=== PATIENT | male | born 1945 | race Caucasian/White ===

== ENCOUNTER 2019-05-10 17:26 | Emergency (ER) | payer MEDICARE, BC ==
[~2019-05-10] VITALS: Ht 180.3 cm; Wt 74.0 kg
[2019-05-10 18:13] LABS: INFLUENZA A PATIENT NEGATIVE (NEGATIVE); INFLUENZA B PATIENT NEGATIVE (NEGATIVE)
[2019-05-10 18:51] LABS: BASO # 0.1 x10^3/uL (0.0-0.2); BASO % 1 % (0-3); EOS # 0.1 x10^3/uL (0.0-0.7); EOS % 1 % (0-3); HEMATOCRIT 44.7 % (39.0-53.0); HEMOGLOBIN 14.7 g/dL (13.0-17.5); LYMPH # 1.1 x10^3/uL (1.0-4.8); LYMPH % 8 % (24-48); MEAN CORPUSCULAR HEMOGLOBIN 29 pg (25-35); MEAN CORPUSCULAR HGB CONC 33 g/dL (31-37); MEAN CORPUSCULAR VOLUME 88 fL (79-100); MONO # 1.4 x10^3/uL (0.0-1.1); MONO % 10 % (0-9); NEUT # 11.9 x10^3uL (1.8-7.7); NEUT % 81 % (31-73); PLATELET COUNT 591 x10^3/uL (140-400); RED CELL DISTRIBUTION WIDTH 15.1 % (11.5-14.5); WHITE BLOOD COUNT 14.6 x10^3/uL (4.0-11.0)
--- NOTE | 2019-05-10 18:54 | PHYS DOC ---
Past History Past Medical History: Cancer, COPD, Diabetes Past Surgical History: Other Additional Past Surgical Histo: bladder cancer Alcohol Use: None Adult General Chief Complaint Chief Complaint: FEVER HPI HPI Patient is a 73-year-old male who presented to ER today for evaluation of productive cough with yellow sputum, fever, chill, sinus congestion for 6 days. Patient denies any chest pain, no trouble breathing, no abdominal pain, no nausea vomiting. Patient denies any recent travel outside the country. No sick contact exposure. he has history COPD. He is not on oxygen at home. Review of Systems Review of Systems All other ROS is negative unless otherwise noted in HPI Positive for cough, fever, chill, sinus congestion, NEGATIVE FOR CHEST PAIN, NO SHORTNESS OF AIR, NO ABDOMINAL PAIN, NO HEADACHE. Allergies Allergies Allergies Coded Allergies Type Severity Reaction Last Updated Verified Penicillins Allergy Unknown Hives 05/10/19 Yes Physical Exam Physical Exam See above Constitutional: Well developed, well nourished, no acute distress, non-toxic appearance. [] HENT: Normocephalic, atraumatic, bilateral external ears normal, oropharynx moist and erythema, no oral exudates, bilateral nare with inflammation and clear drainage. Eyes: PERRLA, EOMI, conjunctiva normal, no discharge. [] Neck: Normal range of motion, no tenderness, supple, no stridor. [] Cardiovascular:Heart rate regular rhythm, no murmur [] Lungs & Thorax: Bilateral breath sounds clear to auscultation [] Abdomen: Bowel sounds normal, soft, no tenderness, no masses, no pulsatile masses. [] Skin: Warm, dry, no erythema, no rash. [] Back: No tenderness, no CVA tenderness. [] Extremities: No tenderness, no cyanosis, no clubbing, ROM intact, no edema. [] Neurologic: Alert and oriented X 3, normal motor function, normal sensory function, no focal deficits noted. [] Psychologic: Affect normal, judgement normal, mood normal. [] Current Patient Data Vital Signs Vital Signs Date Time Temp Pulse Resp B/P (MAP) Pulse Ox O2 Delivery O2 Flow Rate FiO2 05/10/19 17:50 99.8 89 18 144/71 (95) 92 Room Air Lab Results Laboratory Tests Test 05/10/19 17:36 Influenza Type A (Rapid) Negative (NEGATIVE) Influenza Type B (Rapid) Negative (NEGATIVE) EKG EKG [] Radiology/Procedures Radiology/Procedures [][address] [address] IMAGING REPORT Signed PATIENT: FRANCOIS CALDERON ACCOUNT: [id number] : 1945 LOCATION: ER AGE: 73 SEX: M EXAM STATUS: REG ER ORD. PHYSICIAN: MARYANNE LOGAN DO REASON: Cough, congestion, fever PROCEDURE: CHEST PA & LATERAL Exam: Chest 2 views INDICATION: Cough TECHNIQUE: Frontal and lateral views of the chest Comparisons: None FINDINGS: The cardiomediastinal silhouette and pulmonary vessels are within normal limits. Patchy airspace disease in the right lower lobe. No pleural effusion. IMPRESSION: Left lower lobe pneumonia. Electronically signed by: Freda Patterson MD (05/10/2019 7:06 PM) [id number] DICTATED AND SIGNED BY: FREDA PATTERSON MD DATE: 05/10/191905 CC: MARYANNE LOGAN DO; JUSTO FLORES MD; MARCELO HOLDEN DO ~ Course & Med Decision Making Course & Med Decision Making Pertinent Labs and Imaging studies reviewed. (See chart for details) Patient was found to have pneumonia. He was given iv antibiotic. HE FELT BETTER. He would like to be treated outpatient. Dragon Disclaimer Dragon Disclaimer This electronic medical record was generated, in whole or in part, using a voice recognition dictation system. Departure Departure: Impression: Primary Impression: Pneumonia Disposition: 01 HOME, SELF-CARE Condition: STABLE Referrals: JUSTO FLORES MD (PCP) follow up with your doctor this week Patient Instructions: Pneumonia, Adult Additional Instructions: Thank you for visiting our Emergency Department. We appreciate you trusting us with your care. If any additional problems come up don't hesitate to return to visit us. Please follow up with your primary care provider so they can plan additional care if needed and know about the problem that you had. If symptoms worsen come back to the Emergency Department. Any concerning symptoms that start such as chest pain, shortness of air, weakness or numbness on one side of the body, running high fevers or any other concerning symptoms return to the ER. Scripts Levofloxacin (LEVAQUIN) 750 Mg Tablet 1 TAB PO DAILY for pneumonia for 7 Days, #7 TAB 0 Refills Prov: MARCELO HOLDEN DO 05/10/19 MARCELO HOLDEN DO May 10, 2019 18:54
[2019-05-10 19:03] LABS: CALCIUM 8.7 mg/dL (8.5-10.1); CREATININE 1.2 mg/dL (0.7-1.3); GFR 59.2; POTASSIUM 4.4 mmol/L (3.5-5.1)
--- NOTE | 2019-05-10 19:09 | RAD ---
Exam: Chest 2 views INDICATION: Cough TECHNIQUE: Frontal and lateral views of the chest Comparisons: None FINDINGS: The cardiomediastinal silhouette and pulmonary vessels are within normal limits. Patchy airspace disease in the right lower lobe. No pleural effusion. IMPRESSION: Left lower lobe pneumonia. Electronically signed by: Freda Hurt MD (05/10/2019 7:06 PM) [id number]
[2019-05-10 19:10] LABS: ALBUMIN 3.3 g/dL (3.4-5.0); ALBUMIN/GLOBULIN RATIO 0.9 (1.0-1.7); TOTAL BILIRUBIN 0.7 mg/dL (0.2-1.0)
[2019-05-10] MEDS ORDERED: IV NORMAL SALINE 1,000ML 1,000 ML IV ONE (19:15)
[2019-05-10 21:14] VITALS: BP 138/58
[2019-05-10] MEDS ORDERED: LEVO750T31 PO (21:33)
[2019-05-10 21:44] LABS: BACTERIA,URINE MOD /HPF (0-FEW); BILIRUBIN,URINE NEG (NEG); CLARITY,URINE CLOUDY; COLOR,URINE YELLOW; GLUCOSE,URINE NEG (NEG); NITRITE,URINE POS (NEG); UROBILINOGEN,URINE 0.2 mg/dL (0.2 mg/dL)
[2019-05-10 21:45] LABS: AMORPHOUS SEDIMENT,UR PRESENT /HPF
--- NOTE | 2019-05-10 22:50 | EKG ---
[address] [address] Test Date: 2019-05-10 Test Time: 19:15:56 Pat Name: FRANCOIS CALDERON Department: Room: Gender: M Banquet Server On Call: : 1945 Requested By: MARCELO HOLDEN Order Number: [id number] Reading MD: Measurements Intervals [place] Rate: 62 P: 68 NC: 140 QRS: 49 QRSD: 86 T: 80 QT: 402 QTc: 410 Interpretive Statements SINUS RHYTHM NORMAL ECG RI6.01 No previous ECG available for comparison
== END 2019-05-10 21:40 | disposition home or self-care (01) ==
LOC: ER 17:26
DX: J18.9 Pneumonia, unspecified organism (principal); J44.9 Chronic obstructive pulmonary disease, unspecified; E11.9 Type 2 diabetes mellitus without complications; Z88.0 Allergy status to penicillin
CPT/HCPCS: 36415; 71046; 80053; 81001; 83605; 84484; 85025; 85610; 85730; 87086; 87804; 93005; 96365; 96366; 99285; J1956; J7030

== ENCOUNTER 2019-06-02 07:32 | Emergency (ER) | payer MEDICARE, BC ==
[~2019-06-02] VITALS: Ht 180.3 cm; Wt 74.0 kg
[~2019-06-02 07:32] MED LIST: LEVO750T31 PO
--- NOTE | 2019-06-02 07:52 | PHYS DOC ---
Past History Past Medical History: Cancer (Bladder), COPD, Diabetes Past Surgical History: Other Additional Past Surgical Histo: cystectomy for bladder cancer with Urostomy and "pouch"- 2015 at Smoking: Quit Greater Than 1 Year Alcohol Use: None Drug Use: None Adult General Chief Complaint Chief Complaint: R hip pain HPI HPI 73-year-old male resents with report of right hip pain status post mechanical slip and fall while in the parking lot at [employer] just prior to arrival. Reports came down onto right side. Denies head injury, neck pain, or LOC. Reports unable to move right leg without pain. Denies prior injury or prior surgery to right hip. Denies nausea or vomiting. Reports use of Plavix. Reports last PO was a cup of coffee at 0700 this AM. Review of Systems Review of Systems Constitutional: Denies fever or chills Eyes: Denies redness or eye pain HENT: Denies nasal congestion or sore throat Respiratory: Denies cough or shortness of breath Cardiovascular: Denies chest pain or palpitations GI: Denies abdominal pain, nausea, or vomiting : Denies dysuria or hematuria Musculoskeletal: Reports low back pain and right hip pain Integument: Denies rash or skin lesions Neurologic: Denies headache, focal weakness or sensory changes Complete systems were reviewed and found to be within normal limits, except as documented in this note. Allergies Allergies Allergies Coded Allergies Type Severity Reaction Last Updated Verified Penicillins Allergy Unknown Hives 05/10/19 Yes Physical Exam Physical Exam Constitutional: Well developed, well nourished, uncomfortable, non-toxic appearance HENT: Normocephalic, atraumatic, oropharynx moist Eyes: PERRL, EOMI, conjunctiva normal, no discharge Neck: Normal range of motion, no midline tenderness, supple Cardiovascular: Heart rate normal, regular rhythm Lungs & Thorax: Bilateral breath sounds clear to auscultation, no wheezing Abdomen: Soft, no tenderness; pelvis stable and nontender, urostomy bag noted Back: No CVA tenderness, Mid lumbar paraspinal and midline tenderness noted Skin: Warm, dry, no erythema, no rash Extremities: Right hip tenderness on ROM, no obvious shortening and not held in internal/external rotation, no edema, right DP and PT +2 Neurologic: Alert and oriented X 3, normal motor function, normal sensory function, no focal deficits noted Psychologic: Affect normal, judgment normal EKG EKG @0749 NSR at 86bpm, NO ST elevation Radiology/Procedures Radiology/Procedures PROCEDURE: HIP RIGHT 2V WITH PELVIS Examination: HIP RIGHT 2V WITH PELVIS History: Pain, fall Comparison/Correlation: None Findings: Frontal view of pelvis was obtained. Frontal view of the right hip and frog leg lateral view right hip were provided. Portable technique utilized. Surgical clips are noted bilaterally with rib is pelvis and overlying the pubic bone level. The hip joints are symmetric with no significant degenerative narrowing. Right sacroiliac joint partial fusion noted. Partial fusion of the left sacroiliac joint also suggested. Arteriovascular calcifications evident. Deformity of the lateral right subcapital region raises question of fracture on the frontal view. Impression: Subtle right subcapital fracture is questioned. Further evaluation with CT or MRI exam is recommended for more definitive assessment. Electronically signed by: Eulalio Fowler MD (06/02/2019 8:30 AM) [id number] PROCEDURE: CHEST AP ONLY EXAM: CHEST 1 VIEW History: Pain status post fall COMPARISON: 05/10/2019 TECHNIQUE: Single portable radiograph of the chest FINDINGS: The cardiac silhouette is unremarkable. The lungs are clear bilaterally. The costophrenic sulci are clear and well demarcated. IMPRESSION: No radiographic evidence of an acute cardiopulmonary process. Electronically signed by: Rashid Velarde MD (06/02/2019 8:23 AM) [id number] PROCEDURE: CT PELVIS WO CONTRAST, CT LUMBAR SPINE WO CONTRAST History: Right hip pain. Questionable fracture. Spine pain. Comparison: Radiograph June 02, 2019 Technique: Noncontrast CT imaging was performed of the lumbar spine and pelvis. Coronal and sagittal reconstructions were performed. Exposure: One or more of the following individualized dose reduction techniques were utilized for this examination: 1. Automated exposure control 2. Adjustment of the mA and/or kV according to patient size 3. Use of iterative reconstruction technique. Findings: Pelvis: Acute nondisplaced right subcapital femoral neck fracture. No dislocation. No additional fracture. Postoperative changes cystectomy with right lower quadrant ileal conduit. Lumbar spine: Normal vertebral body height and alignment. No fracture. Multiple level lumbar degenerative disc changes most prominent L4-L5. Moderate lower lumbar facet arthropathy. No high-grade canal stenosis. No high-grade neural foraminal narrowing. Mild left L4-5 and L5-S1 neuroforaminal narrowing. Impression: 1. Acute nondisplaced right subcapital femoral neck fracture. 2. Multilevel lumbar spondylosis. Electronically signed by: Inocencio Sanders DO (06/02/2019 9:30 AM) [id number] PROCEDURE: CT HEAD AND CERVICAL SPINE [facility] Compliance Statement: One or more of the following individualized dose reduction techniques were utilized for this examination: 1. Automated exposure control 2. Adjustment of the mA and/or kV according to patient size 3. Use of iterative reconstruction technique CT HEAD AND CERVICAL SPINE WITHOUT CONTRAST History: Pain status post fall, history of Plavix use. Comparison: None. Procedure: Axial images are obtained of the head from the skull base through the vertex without IV contrast. Noncontrast helical CT of the cervical spine was performed. Axial, sagittal, and coronal reconstructions were obtained. Findings: The ventricles and sulci are normal for the patient's age. No mass-effect, midline shift, hemorrhage or obvious acute infarction is identified. Basilar cisterns are patent. Bone windows demonstrate no significant calvarial abnormality. Mucosal thickening of the bilateral maxillary and sphenoid sinuses. The paranasal sinuses are thick walled which may be due to chronic or recurrent sinus disease. Mastoid air cells are well aerated. There is no evidence of acute fracture or acute malalignment of the cervical spine. No perched or jumped facet joints. Facet joints are hypertrophic. The C2/C3 facets are fused bilaterally. There is diffuse demineralization of the upper thoracic spine. There is minimal grade 1 retrolisthesis of C3 on C4. The alignment is otherwise maintained. No significant disc space narrowing. No high-grade narrowing of the central canal is identified. Visualized soft tissues of the neck demonstrate no significant abnormalities. The visualized lung apices are clear. There is upper lung emphysema. IMPRESSION: 1. No acute intracranial abnormality. 2. No acute fracture of the cervical spine. Electronically signed by: Shawn Russell MD (06/02/2019 9:33 AM) [id number] Course & Med Decision Making Course & Med Decision Making Pertinent Labs and Imaging studies reviewed. (See chart for details) Patient presents status post mechanical slip and fall while in parking lot at grocery store. Patient reports unable to bear weight or move hip without significant pain. Denies head trauma or loss of conscious. Denies neck pain. No midline cervical spine tenderness appreciated. Patient is neurologically intact. Reports use of Plavix. Pain addressed. Ice applied. X-ray of right hip reveals subtle subcapital fracture. CT pelvis obtained for further clarification which confirmed nondisplaced subcapital fracture. CT lumbar spine also obtained without acute fracture. CT head/cervical spine without acute process. Perioperative labs, EKG, and chest x-ray obtained without significant findings. UA appears infected with nitrite positive and some WBCs on microscopy, however, no bacteria and appears more likely chronic contamination due to urostomy with probable ileal conduit. Will hold empiric antibiotics. Patient requiring transfer for orthopedic consultation and admission for further evaluation and treatment. Patient offered transfer to [facility]. Patient declined due to "personal preference" and instead requests transfer to [facility]. 0835: Utilized [facility] transfer center. Discussed case with Dr. Coles (ED). Both in agreement that despite mechanical fall, patient appears to have no significant other trauma and might be safer for patient to be direct admission. [facility] scan coordinator- Elle PARKS discussed with trauma surgeon. CT imaging still pending at this time. 0905: Elle discussed with trauma surgeon but requesting CT imaging results to be finalized prior to acceptance for direct admission. Requests to call back [facility] transfer line upon CT radiology reports finalized. 0940: Radiology reports finalized. Discussed again with [facility] transfer line. 1042: [facility] transfer line called back. Discussed case with Fauzia BILLINGS with Dr. Selena Yanez (orthopedics) who is accepting of transfer for admission to [facility]. Discussed findings and plan with patient and family, who acknowledge understanding and agreement. Dragon Disclaimer Dragon Disclaimer This electronic medical record was generated, in whole or in part, using a voice recognition dictation system. Departure Departure: Impression: Primary Impression: Fall Additional Impression: Closed subcapital fracture of right femur Disposition: 05 TRANSFER OTHER ([facility]- accepting) Condition: STABLE Referrals: JUSTO FLORES MD (PCP) Problem Qualifiers Primary Impression: Fall Encounter type: initial encounter Qualified Codes: W19.XXXA - Unspecified fall, initial encounter Additional Impression: Closed subcapital fracture of right femur Encounter type: initial encounter Qualified Codes: S72.011A - Unspecified intracapsular fracture of right femur, initial encounter for closed fracture MIKEL CUETO DO Jun 02, 2019 07:52
--- NOTE | 2019-06-02 07:56 | EKG ---
[address] [address] Test Date: 2019-06-02 Test Time: 07:49:04 Pat Name: FRANCOIS CALDERON Department: Room: Gender: M Elevator Repair Mechanic: : 1945 Requested By: MIKEL CUETO Order Number: [id number] Reading MD: Measurements Intervals [place] Rate: 86 P: 72 AL: 142 QRS: 67 QRSD: 84 T: 68 QT: 340 QTc: 410 Interpretive Statements SINUS RHYTHM NORMAL ECG RI6.01 No previous ECG available for comparison
[2019-06-02 08:13] LABS: BASO # 0.1 x10^3/uL (0.0-0.2); BASO % 1 % (0-3); EOS # 0.7 x10^3/uL (0.0-0.7); EOS % 7 % (0-3); HEMATOCRIT 51.3 % (39.0-53.0); HEMOGLOBIN 16.9 g/dL (13.0-17.5); LYMPH # 1.4 x10^3/uL (1.0-4.8); LYMPH % 14 % (24-48); MEAN CORPUSCULAR HEMOGLOBIN 30 pg (25-35); MEAN CORPUSCULAR HGB CONC 33 g/dL (31-37); MEAN CORPUSCULAR VOLUME 90 fL (79-100); MONO # 0.6 x10^3/uL (0.0-1.1); MONO % 6 % (0-9); NEUT % 72 % (31-73); PLATELET COUNT 617 x10^3/uL (140-400); RED BLOOD COUNT 5.71 x10^6/uL (4.30-5.70); RED CELL DISTRIBUTION WIDTH 15.9 % (11.5-14.5); WHITE BLOOD COUNT 9.8 x10^3/uL (4.0-11.0)
[2019-06-02 08:17] LABS: CALCIUM 9.3 mg/dL (8.5-10.1); POTASSIUM 5.3 mmol/L (3.5-5.1)
[2019-06-02 08:23] LABS: ALBUMIN 3.9 g/dL (3.4-5.0); ALBUMIN/GLOBULIN RATIO 1.3 (1.0-1.7); MAGNESIUM 1.9 mg/dL (1.8-2.4); TOTAL BILIRUBIN 0.3 mg/dL (0.2-1.0); TOTAL PROTEIN 6.8 g/dL (6.4-8.2)
--- NOTE | 2019-06-02 08:26 | RAD ---
EXAM: CHEST 1 VIEW History: Pain status post fall COMPARISON: 05/10/2019 TECHNIQUE: Single portable radiograph of the chest FINDINGS: The cardiac silhouette is unremarkable. The lungs are clear bilaterally. The costophrenic sulci are clear and well demarcated. IMPRESSION: No radiographic evidence of an acute cardiopulmonary process. Electronically signed by: Rashid Velarde MD (06/02/2019 8:23 AM) [id number]
--- NOTE | 2019-06-02 08:32 | RAD ---
Examination: HIP RIGHT 2V WITH PELVIS History: Pain, fall Comparison/Correlation: None Findings: Frontal view of pelvis was obtained. Frontal view of the right hip and frog leg lateral view right hip were provided. Portable technique utilized. Surgical clips are noted bilaterally with rib is pelvis and overlying the pubic bone level. The hip joints are symmetric with no significant degenerative narrowing. Right sacroiliac joint partial fusion noted. Partial fusion of the left sacroiliac joint also suggested. Arteriovascular calcifications evident. Deformity of the lateral right subcapital region raises question of fracture on the frontal view. Impression: Subtle right subcapital fracture is questioned. Further evaluation with CT or MRI exam is recommended for more definitive assessment. Electronically signed by: Eulalio Fowler MD (06/02/2019 8:30 AM) [id number]
[2019-06-02 08:36] LABS: BILIRUBIN,URINE NEG (NEG); CLARITY,URINE HAZY; COLOR,URINE YELLOW; GLUCOSE,URINE NEG (NEG); NITRITE,URINE POS (NEG); UROBILINOGEN,URINE 0.2 mg/dL (0.2 mg/dL)
[2019-06-02 08:37] LABS: BACTERIA,URINE 0 /HPF (0-FEW)
[2019-06-02] MEDS ORDERED: IV NORMAL SALINE 1,000ML 1,000 ML IV ONE (09:15)
--- NOTE | 2019-06-02 09:33 | RAD ---
CT PELVIS WO CONTRAST, CT LUMBAR SPINE WO CONTRAST History: Right hip pain. Questionable fracture. Spine pain. Comparison: Radiograph June 02, 2019 Technique: Noncontrast CT imaging was performed of the lumbar spine and pelvis. Coronal and sagittal reconstructions were performed. Exposure: One or more of the following individualized dose reduction techniques were utilized for this examination: 1. Automated exposure control 2. Adjustment of the mA and/or kV according to patient size 3. Use of iterative reconstruction technique. Findings: Pelvis: Acute nondisplaced right subcapital femoral neck fracture. No dislocation. No additional fracture. Postoperative changes cystectomy with right lower quadrant ileal conduit. Lumbar spine: Normal vertebral body height and alignment. No fracture. Multiple level lumbar degenerative disc changes most prominent L4-L5. Moderate lower lumbar facet arthropathy. No high-grade canal stenosis. No high-grade neural foraminal narrowing. Mild left L4-5 and L5-S1 neuroforaminal narrowing. Impression: 1. Acute nondisplaced right subcapital femoral neck fracture. 2. Multilevel lumbar spondylosis. Electronically signed by: Inocencio Sanders DO (06/02/2019 9:30 AM) [id number]
--- NOTE | 2019-06-02 09:36 | RAD ---
PQRS Compliance Statement: One or more of the following individualized dose reduction techniques were utilized for this examination: 1. Automated exposure control 2. Adjustment of the mA and/or kV according to patient size 3. Use of iterative reconstruction technique CT HEAD AND CERVICAL SPINE WITHOUT CONTRAST History: Pain status post fall, history of Plavix use. Comparison: None. Procedure: Axial images are obtained of the head from the skull base through the vertex without IV contrast. Noncontrast helical CT of the cervical spine was performed. Axial, sagittal, and coronal reconstructions were obtained. Findings: The ventricles and sulci are normal for the patient's age. No mass-effect, midline shift, hemorrhage or obvious acute infarction is identified. Basilar cisterns are patent. Bone windows demonstrate no significant calvarial abnormality. Mucosal thickening of the bilateral maxillary and sphenoid sinuses. The paranasal sinuses are thick walled which may be due to chronic or recurrent sinus disease. Mastoid air cells are well aerated. There is no evidence of acute fracture or acute malalignment of the cervical spine. No perched or jumped facet joints. Facet joints are hypertrophic. The C2/C3 facets are fused bilaterally. There is diffuse demineralization of the upper thoracic spine. There is minimal grade 1 retrolisthesis of C3 on C4. The alignment is otherwise maintained. No significant disc space narrowing. No high-grade narrowing of the central canal is identified. Visualized soft tissues of the neck demonstrate no significant abnormalities. The visualized lung apices are clear. There is upper lung emphysema. IMPRESSION: 1. No acute intracranial abnormality. 2. No acute fracture of the cervical spine. Electronically signed by: Shawn Russell MD (06/02/2019 9:33 AM) [id number]
[2019-06-02 11:16] VITALS: BP 125/54
== END 2019-06-02 11:35 | disposition short-term general hospital (02) ==
LOC: ER 07:32
DX: S72.011A Unspecified intracapsular fracture of right femur, initial encounter for closed fracture (principal); J44.9 Chronic obstructive pulmonary disease, unspecified; E11.9 Type 2 diabetes mellitus without complications; Z87.891 Personal history of nicotine dependence; Z88.0 Allergy status to penicillin; W01.0XXA Fall on same level from slipping, tripping and stumbling without subsequent striking against object, initial encounter; Y93.89 Activity, other specified; Y92.481 Parking lot as the place of occurrence of the external cause; Y99.8 Other external cause status
CPT/HCPCS: 36415; 70450; 71045; 72125; 72131; 72192; 73502; 80053; 81001; 83735; 84484; 85025; 85610; 85730; 87086; 93005; 96374; 96376; 99285; J3010; J7030